=== PATIENT | male | born 1990 | race Caucasian/White ===

== ENCOUNTER → 2018-02-26 | Outpatient (CLI) | payer OTHER ==
--- NOTE | 2018-02-27 02:03 | RADIOLOGY IMAGING REPORT ---
FACILITY: [facility] PATIENT NAME: Smhuel Oscar : 1990 MR: [id number] V: [id number] EXAM DATE: ORDERING PHYSICIAN: DENILSON SKAGGS TECHNOLOGIST: Location: [facility] [place] Patient: Shmuel Oscar : 1990 Visit/Account:[id number] Date of Sevice: 02/26/2018 CT of the lumbar spine without contrast: Indication: Low back pain. Technique: Helical CT was performed through the lumbar spine without contrast. Axial, coronal, and sa gittal reconstructions are reviewed. One of the following dose optimization techniques was utilized in the performance of this exam: Autom ated exposure control; adjustment of the mA and/or kV according to the patient's size; or use of an i terative reconstruction technique. Specific details can be referenced in the facility's radiology CT exam operational policy. Comparison: None. Findings: There is no evidence of fracture, compression, subluxation, or other acute deformity. There is uniform mineralization. There are no signs of disc space narrowing or osteophyte formation. There is mild disc bulging at L4-L5 and L5-S1. No focal disc protrusion is clearly identified. MRI may be helpful for further evaluation. The skeletal structures are otherwise unremarkable. No paraspinal sof t tissue abnormalities are identified. IMPRESSION: There are no signs of acute deformity. There is mild disc bulging at L4-L5 and L5-S1. MRI may be helpful for further evaluation. Report Dictated By: Rio Prater MD at 02/27/2018 1:51 AM Report E-Signed By: Rio Prater MD at 02/27/2018 2:00 AM WSN:[id number]
== END ==
LOC: CT 02-09 00:58
PROVIDERS: ATTEND Chiropractor
DX: M51.27 Other intervertebral disc displacement, lumbosacral region (principal)
CPT/HCPCS: 72131

== ENCOUNTER → 2019-01-28 | Outpatient (CLI) | payer BC ==
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
== END ==
LOC: CT 12:29
PROVIDERS: ATTEND Physician Assistant
DX: S02.401A Maxillary fracture, unspecified side, initial encounter for closed fracture (principal)
CPT/HCPCS: 70486

== ENCOUNTER 2019-02-01 00:38 | Day surgery (SDC) | payer BC ==
--- NOTE | 2019-01-31 15:55 | RADIOLOGY IMAGING REPORT ---
FACILITY: [facility] [place] PATIENT NAME: Shmuel Oscar : 1990 MR: [id number] V: [id number] EXAM DATE: ORDERING PHYSICIAN: HEIDI SHAH TECHNOLOGIST: Location: [facility] [place] Patient: Shmuel Oscar : 1990 Visit/Account:[id number] Date of Sevice: 01/31/2019 EXAMINATION: CT orbits without IV contrast HISTORY: Orbital fracture. Afferent pupillary defect. COMPARISON: CT of the face from 01/28/2019. TECHNIQUE: Spiral scan was obtained through the orbits without intravenous contrast. Sagittal and coronal reformatted images are also submitted. One of the following dose optimization techniques was utilized in the performance of this exam: Autom ated exposure control; adjustment of the mA and/or kV according to the patient's size; or use of an i terative reconstruction technique. Specific details can be referenced in the facility's radiology C T exam operational policy. FINDINGS: RIGHT ORBIT: Globe: Negative. Optic nerve / Intraconal space: Negative. Extra-ocular muscles / Extraconal space: Negative. Lacrimal gland: Negative. Bones: Negative. LEFT ORBIT: Globe: Negative. Optic nerve / Intraconal space: Negative. Extra-ocular muscles / Extraconal space: Negative. Lacrimal gland: Negative. Bones: Redemonstration of an acute fracture of the anterior wall of the left maxillary sinus which ex tends into the left inferior orbital rim and into the anterior floor of the left orbit. Fractures of the medial wall of the left maxillary sinus and left nasal bone are also redemonstrated. Visualized intracranial structures / sinuses / soft tissues: Prominent mucosal thickening in the rig ht maxillary sinus. Mild mucosal thickening and fluid in the left maxillary sinus. Mild patchy mucosa l thickening in the ethmoid air cells. IMPRESSION: Redemonstration of acute facial bone fractures involving the anterior wall of the left maxillary sinu s with extension into the inferior orbital rim and anterior floor of the left orbit. There is no intr aorbital hematoma. Fractures of the medial wall of the left maxillary sinus and the left nasal bone a re also redemonstrated. Report Dictated By: Miky Rodgers MD at 01/31/2019 3:25 PM Report E-Signed By: Miky Rodgers MD at 01/31/2019 3:50 PM WSN:[id number]
[~2019-02-01] VITALS: Ht 180.3 cm; Wt 72.1 kg
[~2019-02-01 00:38] MED LIST: AMOX-559 PO
[2019-02-01] MEDS ORDERED: FAMOTIDINE 20 MG TAB PO ONE (09:00)
[2019-02-01] MEDS ORDERED: LIDOCAINE/SOD BICARB 8.4% SYR ID ONE (09:00)
[2019-02-01] MEDS ORDERED: MIDAZOLAM 2 MG/2 ML VIAL IVP PRN (09:00)
[2019-02-01] MEDS ORDERED: NORMOSOL R SOLN(*) 1000 ML BAG 1,000 ML IV PRN (09:00)
[2019-02-01 09:02] VITALS: BP 138/92
[2019-02-01] MEDS ORDERED: ceFAZolin(*) 2GM/D5W 50ML 50 ML IVPB ONE (09:09)
[2019-02-01] MEDS ORDERED: BACITRACIN ONE (09:27)
[2019-02-01] MEDS ORDERED: BUPIV/EPI 0.25% 1:200,000 50ML INFIL ONE (09:27)
[2019-02-01] MEDS ORDERED: ARTIFICIAL TEARS OINT 3.5 GM ONE (09:37)
[2019-02-01] MEDS ORDERED: DEXAMETHASONE SOD 4 MG/ML VIAL ONE (09:41)
[2019-02-01] MEDS ORDERED: fentaNYL CITR 100 MCG/2 ML AMP ONE ×3 (09:41→11:58)
[2019-02-01] MEDS ORDERED: ONDANSETRON 4 MG/2 ML VIAL ONE (09:41)
[2019-02-01] MEDS ORDERED: PROPOFOL EMUL(*) 10MG/ML 20 ML 20 ML ONE (09:41)
[2019-02-01] MEDS ORDERED: LIDOCAINE MPF 1% 5 ML VIAL ONE (09:41)
[2019-02-01] MEDS ORDERED: KETAMINE HCL-NS 50 MG/5 ML SYR ONE (09:43)
[2019-02-01] MEDS ORDERED: BACITRACIN OINT 15 GM TUBE TP ONE (11:18)
[2019-02-01] MEDS ORDERED: MEPERIDINE HCL 50 MG/ML SDV 50 MG/ML VIAL ONE (11:46)
[2019-02-01] MEDS ORDERED: BACITRACIN OP OINT 3.5 GM TUBE OD ONE (12:15)
[2019-02-01] MEDS ORDERED: CEFU500T10 PO (12:18)
[2019-02-01] MEDS ORDERED: HYDR-653 PO (12:19)
[2019-02-01] MEDS ORDERED: BACOO OP (12:23)
--- NOTE | 2019-02-01 12:44 | OPERATIVE REPORT 1 ---
EVENT DATE: February 01, 2019 SURGEON: Conor Billy MD ANESTHESIOLOGIST: Rusty Sol MD ANESTHESIA: LMA. CARBON BRUSHER ASSEMBLER: Eloisa Ayers, LOG OPERATIONS COORDINATOR, CSFA PREOPERATIVE DIAGNOSIS Left comminuted displaced orbital rim fracture. POSTOPERATIVE DIAGNOSIS Left comminuted displaced orbital rim fracture. PROCEDURE PERFORMED Open reduction internal fixation of a left comminuted displaced orbital rim fracture. INDICATIONS Please refer to the preoperative note. DESCRIPTION OF PROCEDURE The patient was positively identified in the preoperative area. He was accompanied there by his mother. Risks were again explained including, but not limited to, bleeding, infection, poor cosmetic result, injury to the eye and those associated with anesthesia. He acknowledged understanding those risks. I again reviewed the patient's preoperative CT of the sinuses and orbits. This was notable for comminuted fractures of the maxilla and orbital rim. Patient was then brought back to the operative suite, laid supine on the operating table and anesthesia was administered. Once asleep, the patient was positioned and prepped and draped in usual sterile fashion. A corneal shield was placed over the left eye with eye lubricant. A 6-0 Nylon suture was placed in the lower lid for gentle retraction. A 2 cm transconjunctival incision was made. I then dissected bluntly with a mosquito forceps onto the orbital rim. The patient was noted to have a comminuted and displaced fracture of the left orbital rim. Unfortunately, due to the character of the fracture, I was unable to obtain adequate exposure for reduction of the fracture and placement of the plate. Therefore, I converted to a subciliary incision and this was made in the infraorbital crease. Approximately 1 cc of 0.25% Marcaine with epinephrine was infiltrated. The aforementioned incision was then made with 15 blade. The underlying subcutaneous tissue and orbital muscle was divided with the Bovie electrocautery. The fracture and bony fragments were exposed. A 0.5 mm orbital rim plate was cut and fashioned. This was secured to the bony fragments with 4 mm and 5 mm drilling screws. The wound was then copiously irrigated with normal saline solution. The transconjunctival incision was then closed with interrupted fast-absorbing gut suture, 6.0. The subciliary incision was closed with the fast-absorbing gut for the muscle and a deep dermal layer was placed with fast-absorbing as well. Mastisol and Steri-Strips were then placed. The patient was turned to Anesthesia for emergence. ESTIMATED BLOOD LOSS 10 cc. COMPLICATIONS No complications. MTDD
[2019-02-01 12:45] VITALS: BP 144/102
[2019-02-01 12:52] VITALS: BP 149/105
[2019-02-01 12:53] VITALS: BP 133/103
[2019-02-01] MEDS ORDERED: TETRACAINE 0.5% OP SOL 4ML BTL OS ONE (12:55)
[2019-02-01] MEDS ORDERED: [UNRECOGNIZED DRUG - CODE] OS (13:43)
[2019-02-01 13:45] VITALS: BP 126/88
[2019-02-01] MEDS ORDERED: APAP/HYDROCODONE 325/5 TAB ONE (13:59)
== END 2019-02-01 12:45 | disposition home or self-care (01) ==
LOC: OR 00:38
PROVIDERS: ATTEND Otolaryngology
DX: S02.82XA Fracture of other specified skull and facial bones, left side, initial encounter for closed fracture (principal)
CPT/HCPCS: 21406; 70480; J1100; J2001; J2175; J2250; J2405; J2704; J3010; J3490; J0690